=== PATIENT | male | born 1955 ===

== ENCOUNTER 2017-12-07 16:24 | Emergency (ER) | payer SELFPAY ==
--- NOTE | 2017-12-07 16:31 | NUR ---
Pt was triaged and placed in room 1b at 1600. Pt and family were already upset due to wait time in ER lobby prior to triage. Pt was not registered and placed on tracker until 1630 at which time pt and family decided to leave.
== END 2017-12-07 16:38 | disposition left against medical advice (07) ==
LOC: ER 16:29
DX: Z53.21 Procedure and treatment not carried out due to patient leaving prior to being seen by health care provider (principal)